=== PATIENT | male | born 1995 | race Caucasian/White ===

== ENCOUNTER 2024-08-21 19:13 | Emergency (ER) | payer OTHER ==
[2024-08-21] MEDS ORDERED: KETOROLAC TROMETHAMINE 15 MG/ML VIAL ONE (21:12)
[2024-08-21] MEDS ORDERED: ACETAMINOPHEN ES 500 MG TABLET ONE (21:13)
[2024-08-21] MEDS ORDERED: PANTOPRAZOLE 40 MG VIAL ONE (21:13)
[2024-08-21] MEDS: IV NS 0.9% 1,000 ML BAG IV ONE (21:20)
[2024-08-21] MEDS: KETOROLAC TROMETHAMINE 15 MG/ML VIAL IV ONE (21:20)
[2024-08-21] MEDS: PANTOPRAZOLE 40 MG VIAL IV ONE (21:21)
[2024-08-21] MEDS: ACETAMINOPHEN ES 500 MG TABLET PO ONE (21:25)
[2024-08-21 21:26] LABS: BASOPHILS # (AUTO) 0.1 K/uL (0.0-0.2); BASOPHILS % (AUTO) 0.8 % (0.0-2.0); EOSINOPHILS # (AUTO) 0.1 K/uL (0.0-0.7); EOSINOPHILS % (AUTO) 1.7 % (0.0-6.0); HEMATOCRIT 40 % (39-51); HEMOGLOBIN 13.9 g/dL (13.5-17.5); LYMPHOCYTES # (AUTO) 1.3 K/uL (0.8-4.8); LYMPHOCYTES % (AUTO) 16.4 % (20.0-44.0); MEAN CORPUSCULAR HEMOGLOBIN 32 PG (26.0-33.0); MEAN CORPUSCULAR HGB CONC 35 g/dl (31.0-36.0); MEAN CORPUSCULAR VOLUME 92 fL (80-96); MONOCYTES # (AUTO) 0.9 K/uL (0.1-1.30); MONOCYTES % (AUTO) 10.9 % (2.0-12.0); NEUTROPHILS # (AUTO) 5.6 K/uL (1.8-8.9); NEUTROPHILS % (AUTO) 70.2 % (43.0-81.0); PLATELET COUNT (AUTO) 257 K/uL (150-450); RED BLOOD CELL COUNT(AUTO) 4.33 MIL/uL (4.5-6.0); WHITE BLOOD COUNT (AUTO) 7.9 K/uL (4.3-11.0)
[2024-08-21 21:37] LABS: APPEARANCE,URINE CLEAR (CLEAR); BILIRUBIN,URINE NEGATIVE (NEGATIVE); BLOOD, URINE NEGATIVE Ery/uL (NEGATIVE); COLOR,URINE YELLOW (YELLOW); KETONES,URINE NEGATIVE (NEGATIVE); LEUKOCYTE ESTERASE ,URINE NEGATIVE (NEGATIVE); NITRITE, URINE NEGATIVE (NEGATIVE); PROTEIN,URINE NEGATIVE (NEGATIVE); UGLUCOSE NEGATIVE (NEGATIVE); UROBILINOGEN,URINE 0.2 EU/dL (0.2)
[2024-08-21 21:39] LABS: ALBUMIN 3.5 g/dL (3.4-5.0); BILIRUBIN,TOTAL 0.3 mg/dL (0.2-1.0); CALCIUM, SERUM 9.1 mg/dL (8.5-10.1); CREATININE 1.1 mg/dL (0.6-1.3); TOTAL PROTEIN, SERUM 7.3 g/dL (6.4-8.2)
[2024-08-21 21:40] LABS: BILIRUBIN,DIRECT 0.1 mg/dL (0.0-0.2)
[2024-08-21] MEDS ORDERED: CT SWABBABLE VALVE TRANS SET 1 EA INFUS.SET MC ONE (21:47)
[2024-08-21] MEDS ORDERED: IOHEXOL-300 100 ML VIAL IV ONE (21:47)
[2024-08-21] MEDS ORDERED: IV NS 0.9% 250 ML IV ONE (21:47)
[2024-08-21] MEDS ORDERED: METR500T PO (23:05)
[2024-08-21] MEDS ORDERED: CIPR-262 PO (23:05)
[2024-08-21 23:19] VITALS: BP 119/71; TEMP 98.6; O2SAT 99
== END 2024-08-21 23:19 | disposition home or self-care (01) ==
LOC: ER 19:22
DX: K52.9 Noninfective gastroenteritis and colitis, unspecified (principal); K21.9 Gastro-esophageal reflux disease without esophagitis; F17.200 Nicotine dependence, unspecified, uncomplicated; Z79.899 Other long term (current) drug therapy
CPT/HCPCS: 99285; 74177; 96374; 96361; 96375; 85025; 80048; 87086; 83690; 80076; 81003; 36415; J7030; J7050; J2470; Q9967; J1885